=== PATIENT | male | born 1955 | race Caucasian/White ===

== ENCOUNTER 2018-09-20 13:16 | Day surgery (SDC) | payer OTHER ==
[~2018-09-20] VITALS: Ht 170.2 cm; Wt 117.8 kg
[2018-09-20] MEDS ORDERED: METFORMIN (14:41)
[2018-09-20] MEDS ORDERED: LANTUS INSULIN (14:41)
[2018-09-20] MEDS ORDERED: HTN MEDICATION (14:41)
[2018-09-20] MEDS ORDERED: HUMALOG INSULIN (14:41)
[2018-09-20 14:43] VITALS: Ht 170.2 cm; Wt 117.8 kg
[2018-09-20 15:24] VITALS: BP 161/87; PULSE 87; RESP 12
[2018-09-20] MEDS ORDERED: PROPOFOL 60 ML ONE (15:24)
[2018-09-20] MEDS ORDERED: LIDOCAINE 2% (SDV) 5 ML INJ ONE (15:24)
--- NOTE | 2018-09-20 15:29 | PREAC ---
Date/Time of Note Date/Time of Note DATE: 09/20/18 TIME: 15:27 Anesthesia Eval and Record Evaluation Time Pre-Procedure Interview DATE: 09/20/18 TIME: 15:27 Age 63 Sex male NPO: 8 hrs Preoperative diagnosis Abdominal pain Planned procedure Colonoscopy Past Medical History Past Medical History: Includes Cardio: HTN, Dyslipidemia Endo: Diabetes Pulm: COPD GI: Morbid obesity Surgery & Anesthesia Issues No known issue Meds Anticoagulation: No Beta Sherie within 24 hr: No Reason Beta Sherie not given: Pt. not on B-Sherie Reported Medications [Lantus Insulin] No Conflict Check 09/20/18 [Humalog Insulin] No Conflict Check 09/20/18 [Metformin] No Conflict Check 09/20/18 [Htn Medication] No Conflict Check 09/20/18 Meds reviewed: Yes Allergies Coded Allergies: No Known Allergy (Unverified , 09/20/18) Allergies Reviewed: Yes Labs/Studies Labs Reviewed: Reviewed by anesthesiologist test: N/A Studies: ECG Pre-procedure Exam Last vitals Vital Signs Date Temp Pulse Resp B/P (MAP) Pulse Ox O2 O2 Flow FiO2 Time Delivery Rate 09/20/18 98.3 87 12 161/87 95 Room Air 15:24 (111) Airway: Adequate mouth opening, Adequate thyromental dist Mallampati: Mallampati II Teeth: Normal Lung: Normal Heart: Normal ASA Physical Status ASA physical status: 3 Emergency: None Planned Anesthetic General/MAC: MAC Planned Pain Management Parenteral pain med Pre-operative Attestations Prior to commencing anesthesia and surgery, the patient was re-evaluated, there was verification of: *The patient's identity *The results of appropriate recent lab work and preoperative vital signs *The above evaluation not changing prior to induction *Anesthetic plan, risk benefits, alternative and complications discussed with patient/family; questions answered; patient/family understands, accepts and wishes to proceed. MARILYN ANGELA MD Sep 20, 2018 15:29
--- NOTE | 2018-09-20 15:57 | PAC ---
Date/Time of Note Date/Time of Note DATE: 09/20/18 TIME: 15:57 Post-Anesthesia Notes Post-Anesthesia Note Last documented vital signs Vital Signs Date Temp Pulse Resp B/P (MAP) Pulse Ox O2 O2 Flow FiO2 Time Delivery Rate 09/20/18 98.3 87 12 161/87 95 Room Air 15:24 (111) Activity: WNL Respiratory function: WNL Cardiovascular function: WNL Mental status: Baseline Pain reasonably controlled: Yes Hydration appropriate: Yes Nausea/Vomiting absent: Yes Comments 136/67, P:88, Spo2:98%, T:98,8 MARILYN ANGELA MD Sep 20, 2018 15:57
[2018-09-20 16:17] VITALS: BP 148/81; PULSE 83; RESP 16
--- NOTE | 2018-09-20 16:20 | HPN ---
Date/Time of Note Date/Time of Note DATE: 09/20/18 TIME: 16:20 Interval H&P Admission Note Pt. seen H&P reviewed: No system changes ACSS HERNANDEZ Sep 20, 2018 16:20
== END 2018-09-20 16:39 | disposition home or self-care (01) ==
LOC: GIL 13:16
PROVIDERS: ATTEND Internal Medicine Gastroenterology
DX: D12.4 Benign neoplasm of descending colon (principal); E11.9 Type 2 diabetes mellitus without complications; E78.5 Hyperlipidemia, unspecified; I10 Essential (primary) hypertension; J44.9 Chronic obstructive pulmonary disease, unspecified
CPT/HCPCS: 45380; 82962; 88305; Z7610